=== PATIENT | female | born 1990 | race Caucasian/White ===

== ENCOUNTER 2020-06-08 20:09 | Inpatient (IN) | payer OTHER ==
[~2020-06-08] VITALS: Ht 165.1 cm; Wt 70.3 kg
[~2020-06-08 20:09] MED LIST: IRON240 MG PO; PRENATAL VITAM1 EACH PO; PROVENTIL HFA6.7 GM INH; TYLENOL325 MG PO
--- NOTE | 2020-06-08 22:52 | NUR ---
[facility] RAPID COVID TEST DONE PER DR MURRELL. COVID TEST COLLECTED FROM BOTH NARES. LEFT SIDE HAD OBSTRUCTION. RIGHT SIDE WAS GOOD. PT TOLERATED WELL.
--- NOTE | 2020-06-10 08:23 | PR ---
[facility] [address] [place], [place] [address] Signed PP Progress Notes Datetime Report Generated by CPDeven: 06/10/2020 08:23 SUBJECTIVE: [id number] Pain: Within Normal Limits Nausea/Vomiting: Denies Vital Signs: [id number] Vital Signs: Reviewed; Within Normal Limits EXAM: Ongoing Cardiovascular: Not Done Respiratory: Not Done Abdomen/Uterus: Abnormal Lochia: Normal Vulva/Perineum: Not Done Breasts: Not Done CVA Tenderness: Not Done Extremities: Normal Incision: Not Applicable Progress: Normal Exam Comments: Fundus firm, NT @ U-2. H/H/ 10.8/31.8, WBC 13.2, plat 219k IMPRESSION/PLAN/PROCEDURES: [id number] Impression: Normal Progression Plan: Discharge Procedures: None Progress Notes: Doing well. She desires D/C today. Signing Physician: Opal Lopez MD Copies: ~ *Electronically Signed* 06/10/20822 OPAL LOPEZ MD PATIENT NAME: LENORAVINISHARI Deven PROGRESS NOTE DATE OF : 89 PHYSICIAN: OPAL LOPEZ MD RPT #: [id number] REPORT IS CONFIDENTIAL AND NOT TO BE RELEASED WITHOUT AUTHORIZATION
== END 2020-06-10 11:11 | disposition home or self-care (01) | DRG 807 ==
LOC: FBCO 20:09 → FBC 22:10
PROVIDERS: ADMIT Obstetrics & Gynecology; ATTEND Obstetrics & Gynecology
PROC: 10E0XZZ Delivery of Products of Conception, External Approach (ICD-10-PCS; principal; 2020-06-09)
PROC: 0KQM0ZZ Repair Perineum Muscle, Open Approach (ICD-10-PCS; 2020-06-09)
PROC: 10907ZC Drainage of Amniotic Fluid, Therapeutic from Products of Conception, Via Natural or Artificial Opening (ICD-10-PCS; 2020-06-09)
DX: O70.1 Second degree perineal laceration during delivery (principal); Z37.0 Single live birth; Z3A.38 38 weeks gestation of pregnancy; Z20.822 Contact with and (suspected) exposure to COVID-19
CPT/HCPCS: 36415; 85027; A9270; C9803; J2590; J7121; U0003